=== PATIENT | female | born 1965 | race Caucasian/White ===

== ENCOUNTER → 2018-09-01 | Outpatient (CLI) | payer OTHER ==
[~2018-09-01] MED LIST: ACET-1600 PO; CHOL2000 PO; FISHOIL PO; LIDOCAINE-MPF 1%, 5ML ONE; MELO15TA24 PO; MULT1TAB60 PO; UBID100C24 PO; [UNRECOGNIZED DRUG - OTHER] PO
== END | disposition home or self-care (01) ==
LOC: MERGE 12:43 → RAD 12:43
PROVIDERS: ATTEND Family Medicine
DX: E04.1 Nontoxic single thyroid nodule (principal)
CPT/HCPCS: 10005; 88173